=== PATIENT | female | born 1930 | race Caucasian/White ===

== ENCOUNTER 2017-01-08 16:18 | Inpatient (IN) | payer MEDICARE, BC ==
[~2017-01-08] VITALS: Ht 152.4 cm; Wt 59.7 kg
[~2017-01-08 16:18] MED LIST: BENAZEPRIL PO; CALTRATE-600 W600 MG PO; CELEBREX 200MG200 MG PO; CENTRUM SILVER1 TA1 PO; CLARITIN; DEBROX EAR DROPS; DETROL LA PO; DIOVAN80 M1 PO; DITROPAN 5MG TAB5 MG PO; DULCOLAX S10 MG/SUPP RC; FOSAMAX 70MG TA70 MG PO; FOSAMAX PO; LACTOSE INTOLERANCE; LIDODERM PATCH TD; LORATADINE10 MG PO; METAMUCIL1 PDR PO; NORVASC PO; OSCAL W/VIT D250 MG PO; PAXIL 10MG10 MG PO; PREMARIN .3MG0.3 MG PO; PREMARIN0.625 MG PO; REMERON 15M15 MG/TAB PO; SENOKOT8.6 MG PO; TYLENOL 325MG325 MG PO; ULTRAM50 MG PO
[2017-01-08 17:05] LABS: BASO % 0.6 % (0.0-2.0); EOS # 0.1 (0.0-0.7); EOS % 1.7 % (0-4.0); GRAN # 5.3 (1.4-6.5); GRAN % 74.1 % (42.2-75.2); LYMPH # 1.1 (1.2-3.4); LYMPH % 15.5 % (20.0-51.0); MEAN CELL VOLUME 100 fl (80.0-100.0); MEAN CORPUSCULAR HGB CONC 30 g/dl (33.0-37.0); MEAN PLATELET VOLUME 10.5 fl (7.4-10.4); MONO # 0.6 (0.1-0.6); MONO % 7.8 % (1.7-9.3); PLATELET COUNT 288 K/mm3 (130-400); RED BLOOD COUNT 1.89 M/mm3 (4.10-5.30); REDCELL DISTRIBUTION WIDTH-CV 14.6 % (11.5-14.5); WHITE BLOOD COUNT 7.2 K/mm3 (4.8-10.8)
[2017-01-08 17:09] LABS: HEMATOCRIT 18.8 % (37.0-47.0); HEMOGLOBIN 5.7 g/dl (12.5-16.0); MEAN CORPUSCULAR HEMOGLOBIN 30 pg (27.0-31.0)
[2017-01-08 17:11] LABS: ADJUSTED CALCIUM 8.9 mg/dL (8.4-10.2); ALANINE AMINOTRANSFERASE 16 U/L (9-52); ALBUMIN 3.7 gm/dL (3.5-5.0); ALKALINE PHOSPHATASE 63 U/L (50-136); ANION GAP 14 mmol/L (7-16); BILIRUBIN,TOTAL 0.5 mg/dL (0.0-1.0); C-REACTIVE PROTEIN 0.7 mg/dL (0.0-0.9); CALCIUM 8.7 mg/dL (8.4-10.2); CARBON DIOXIDE 19 mmol/L (22-30); CHLORIDE 110 mmol/L (98-107); CREATINE KINASE 65 U/L (30-135); CREATININE, serum 3.15 mg/dL (0.52-1.25); GLUCOSE 88 mg/dL (74-106); LIPASE 231 U/L (23-300); POTASSIUM 4.8 mmol/L (3.4-5.0); SODIUM 142 mmol/L (137-145); TOTAL PROTEIN 6.6 gm/dL (6.4-8.2)
[2017-01-08 17:19] LABS: ACETAMINOPHEN < 10 ug/mL (10-30); SALICYLATE < 1.0 mg/dL
[2017-01-08 17:20] LABS: B-TYPE NATRIURETIC PEPTIDE 910 pg/mL (0-450); BLOOD UREA NITROGEN 96 mg/dL (7-17)
[2017-01-08 17:22] LABS: TROPONIN-I < 0.012 ng/mL (0.000-0.034)
[2017-01-08 17:38] LABS: ERYTHROCYTE SEDIMENTATION RATE 48 mm/hr (0-30)
[2017-01-08 18:13] LABS: AMPHETAMINE URINE NEGATIVE; BARBITURATES URINE NEGATIVE; BENZODIAZEPINES URINE NEGATIVE; BUPRENORPHINE URINE NEGATIVE; METHADONE URINE NEGATIVE; OPIATES URINE NEGATIVE; OXYCODONE URINE NEGATIVE; PHENCYCLIDINE URINE NEGATIVE; PROPOXYPHENE URINE NEGATIVE; THC CANNABINOIDS URINE NEGATIVE
[2017-01-08] MEDS ORDERED: CLARITIN 1010 MG/TAB PO (18:24)
[2017-01-08] MEDS ORDERED: BYSTOLIC5 MG PO (18:24)
[2017-01-08] MEDS ORDERED: [UNRECOGNIZED DRUG - OTHER] OS (18:25)
[2017-01-08] MEDS ORDERED: MURO 128 5% OPH15 ML OS (18:25)
[2017-01-08] MEDS ORDERED: RT ADVAIR 128 DISKUS IH (18:26)
[2017-01-08] MEDS ORDERED: TYLENOL 325MG325 MG PO (18:26)
[2017-01-08] MEDS ORDERED: IMODIUM 2MG CAPS2 MG PO (18:26)
[2017-01-08] MEDS ORDERED: PAXIL 10MG10 MG PO (18:27)
[2017-01-08] MEDS ORDERED: VELTASSA8.4 GM PO (18:27)
[2017-01-08] MEDS ORDERED: PROCRIT 4,04 MU/VIAL IM (18:27)
[2017-01-08] MEDS ORDERED: SINGULAIR 110 MG/TAB PO (18:27)
[2017-01-08 18:28] LABS: PH 5 (5-8); SQUAMOUS EPITHELIAL 0-2 /hpf; URINE APPEARANCE Hazy; URINE BACTERIA Rare /hpf; URINE BILIRUBIN Negative (NEGATIVE); URINE BLOOD Negative (NEGATIVE); URINE COLOR Yellow; URINE GLUCOSE Negative (NEGATIVE); URINE KETONE Negative (NEGATIVE); URINE RBC None Seen /hpf; URINE UROBILINOGEN Negative (NEGATIVE); URINE WBC 0-2 /hpf
[2017-01-08] MEDS ORDERED: DITROPAN 5MG TAB5 MG PO (18:28)
[2017-01-08 21:29] VITALS: BP 156/51; PULSE 90; TEMP 98.2
[2017-01-08 23:55] VITALS: BP 149/57; PULSE 99; TEMP 99
[2017-01-09] VITALS (16 sets, daily range): BP systolic 117–182; BP diastolic 44–76; PULSE 84–108; TEMP 97.3–99.2
[2017-01-09 07:33] LABS: BASO % 0.4 % (0.0-2.0); EOS # 0.1 (0.0-0.7); EOS % 1.5 % (0-4.0); GRAN # 6.2 (1.4-6.5); GRAN % 66.5 % (42.2-75.2); LYMPH % 20.9 % (20.0-51.0); MEAN CORPUSCULAR HGB CONC 32 g/dl (33.0-37.0); MEAN PLATELET VOLUME 10.4 fl (7.4-10.4); MONO % 10.3 % (1.7-9.3); PLATELET COUNT 235 K/mm3 (130-400); RED BLOOD COUNT 2.59 M/mm3 (4.10-5.30); REDCELL DISTRIBUTION WIDTH-CV 16.2 % (11.5-14.5); WHITE BLOOD COUNT 9.4 K/mm3 (4.8-10.8)
[2017-01-09 07:37] LABS: CALCIUM 8.3 mg/dL (8.4-10.2); CREATININE, serum 2.75 mg/dL (0.52-1.25); POTASSIUM 4.2 mmol/L (3.4-5.0)
[2017-01-09 07:40] LABS: HEMATOCRIT 24.3 % (37.0-47.0); HEMOGLOBIN 7.8 g/dl (12.5-16.0); MEAN CELL VOLUME 94 fl (80.0-100.0); MEAN CORPUSCULAR HEMOGLOBIN 30 pg (27.0-31.0)
[2017-01-09 17:10] LABS: HEMATOCRIT 23.9 % (37.0-47.0); HEMOGLOBIN 7.8 g/dl (12.5-16.0)
[2017-01-10 03:24] VITALS: BP 142/51; PULSE 89; TEMP 98.6
[2017-01-10 07:45] LABS: HEMATOCRIT 22.6 % (37.0-47.0); HEMOGLOBIN 7.4 g/dl (12.5-16.0)
[2017-01-10 07:46] LABS: CALCIUM 8.5 mg/dL (8.4-10.2); CREATININE, serum 2.68 mg/dL (0.52-1.25)
[2017-01-10 08:15] VITALS: BP 122/47; PULSE 99; TEMP 98.1
[2017-01-10 12:01] VITALS: BP 118/47; PULSE 113; TEMP 98.3
[2017-01-10 16:42] VITALS: BP 130/54; PULSE 92; TEMP 98.3
[2017-01-10 16:57] LABS: HEMOGLOBIN 7.5 g/dl (12.5-16.0)
[2017-01-10 16:58] LABS: HEMATOCRIT 23.3 % (37.0-47.0)
[2017-01-10 19:41] VITALS: BP 142/56; PULSE 117; TEMP 97.5
[2017-01-10 23:09] VITALS: BP 133/48; PULSE 105; TEMP 98.7
[2017-01-11 02:23] VITALS: BP 148/51; PULSE 101; TEMP 98.6
[2017-01-11 07:28] LABS: BASO # 0.1 (0.0-0.2); BASO % 0.7 % (0.0-2.0); EOS # 0.1 (0.0-0.7); EOS % 1.6 % (0-4.0); GRAN # 5.5 (1.4-6.5); GRAN % 67.6 % (42.2-75.2); LYMPH # 1.6 (1.2-3.4); LYMPH % 19.5 % (20.0-51.0); MEAN CELL VOLUME 94 fl (80.0-100.0); MEAN CORPUSCULAR HGB CONC 32 g/dl (33.0-37.0); MEAN PLATELET VOLUME 10.3 fl (7.4-10.4); MONO # 0.8 (0.1-0.6); MONO % 10.2 % (1.7-9.3); PLATELET COUNT 251 K/mm3 (130-400); RED BLOOD COUNT 2.46 M/mm3 (4.10-5.30); REDCELL DISTRIBUTION WIDTH-CV 16.4 % (11.5-14.5); WHITE BLOOD COUNT 8.2 K/mm3 (4.8-10.8)
[2017-01-11 07:32] LABS: HEMOGLOBIN 7.4 g/dl (12.5-16.0); MEAN CORPUSCULAR HEMOGLOBIN 30 pg (27.0-31.0)
[2017-01-11 07:36] LABS: CALCIUM 8.6 mg/dL (8.4-10.2); CREATININE, serum 2.91 mg/dL (0.52-1.25)
[2017-01-11 07:46] VITALS: BP 134/54; PULSE 95; TEMP 98.1
[2017-01-11 12:20] VITALS: BP 132/51; PULSE 94; TEMP 98.1
[2017-01-11 15:35] VITALS: BP 119/51; PULSE 96; TEMP 98.3
[2017-01-11 20:56] VITALS: BP 134/43; PULSE 98; TEMP 98.1
[2017-01-11 22:24] VITALS: BP 156/53; PULSE 98; TEMP 98.3
[2017-01-12 04:12] VITALS: BP 120/47; PULSE 88; TEMP 98.7
[2017-01-12] MEDS ORDERED: FERROUS SU325 MG/TAB PO (08:27)
[2017-01-12] MEDS ORDERED: PROTONIX 40MG T40 MG PO (08:28)
[2017-01-12] MEDS ORDERED: SODIUM BICARBO650 MG PO (08:28)
[2017-01-12 08:30] VITALS: BP 121/36; PULSE 61; TEMP 98
[2017-01-12 08:30] LABS: HEMATOCRIT 23.4 % (37.0-47.0); HEMOGLOBIN 7.5 g/dl (12.5-16.0)
[2017-01-12 11:06] VITALS: BP 118/44; PULSE 96; TEMP 97.8
[2017-01-12 14:53] VITALS: BP 118/44; PULSE 96; TEMP 97.8
== END 2017-01-12 15:39 | DRG 378 ==
LOC: COL.ER 16:18 → MEDICAL 18:12
PROVIDERS: Emergency Medicine; Internal Medicine; Internal Medicine Gastroenterology; Nurse Practitioner Family
PROC: 0DJ08ZZ Inspection of Upper Intestinal Tract, Via Natural or Artificial Opening Endoscopic (ICD-10-PCS; principal; 2017-01-09 12:00)
PROC: 0D5L8ZZ Destruction of Transverse Colon, Via Natural or Artificial Opening Endoscopic (ICD-10-PCS; 2017-01-09 12:00)
DX: K25.4 Chronic or unspecified gastric ulcer with hemorrhage (principal); N18.4 Chronic kidney disease, stage 4 (severe); E87.2 Acidosis; D62 Acute posthemorrhagic anemia; I12.9 Hypertensive chronic kidney disease with stage 1 through stage 4 chronic kidney disease, or unspecified chronic kidney disease; F41.9 Anxiety disorder, unspecified; K64.0 First degree hemorrhoids; K57.30 Diverticulosis of large intestine without perforation or abscess without bleeding; Z85.3 Personal history of malignant neoplasm of breast
CPT/HCPCS: 99222-AI; 99232-AI; 99239; C9113; J2704; J7030; P9016

== ENCOUNTER → 2017-01-18 | Outpatient (CLI) | payer OTHER, MEDICARE, BC ==
[~2017-01-18] MED LIST changes: +BYSTOLIC5 MG PO; +CLARITIN 1010 MG/TAB PO; +FERROUS SU325 MG/TAB PO; +IMODIUM 2MG CAPS2 MG PO; +MURO 128 5% OPH15 ML OS; +PROCRIT 4,04 MU/VIAL IM; +PROTONIX 40MG T40 MG PO; +RT ADVAIR 128 DISKUS IH; +SINGULAIR 110 MG/TAB PO; +SODIUM BICARBO650 MG PO; +VELTASSA8.4 GM PO; +[UNRECOGNIZED DRUG - OTHER] OS
[2017-01-18 16:58] LABS: CALCIUM 8.1 mg/dL (8.4-10.2); CREATININE, serum 3.73 mg/dL (0.52-1.25); POTASSIUM 4.9 mmol/L (3.4-5.0)
[2017-01-18 17:01] LABS: BASO % 0.7 % (0.0-2.0); EOS # 0.1 (0.0-0.7); EOS % 1.7 % (0-4.0); GRAN % 66.2 % (42.2-75.2); LYMPH # 1.2 (1.2-3.4); LYMPH % 19.7 % (20.0-51.0); MEAN CELL VOLUME 98 fl (80.0-100.0); MEAN CORPUSCULAR HGB CONC 31 g/dl (33.0-37.0); MEAN PLATELET VOLUME 10.6 fl (7.4-10.4); MONO # 0.7 (0.1-0.6); MONO % 11.4 % (1.7-9.3); PLATELET COUNT 275 K/mm3 (130-400); RED BLOOD COUNT 2.38 M/mm3 (4.10-5.30); REDCELL DISTRIBUTION WIDTH-CV 16.7 % (11.5-14.5); WHITE BLOOD COUNT 6.1 K/mm3 (4.8-10.8)
[2017-01-18 17:06] LABS: HEMATOCRIT 23.4 % (37.0-47.0); HEMOGLOBIN 7.2 g/dl (12.5-16.0); MEAN CORPUSCULAR HEMOGLOBIN 30 pg (27.0-31.0)
== END ==
LOC: COL.LAB 16:00
PROVIDERS: Internal Medicine
DX: N18.4 Chronic kidney disease, stage 4 (severe) (principal); K92.2 Gastrointestinal hemorrhage, unspecified

== ENCOUNTER 2017-03-20 22:04 | Emergency (ER) | payer MEDICARE, BC ==
[~2017-03-20] VITALS: Ht 129.5 cm; Wt 61.8 kg
[2017-03-20 22:09] VITALS: BP 163/67; TEMP 99.4
[2017-03-20 23:53] LABS: BASO % 0.5 % (0.0-2.0); EOS # 0.1 (0.0-0.7); EOS % 1.4 % (0-4.0); GRAN # 5.4 (1.4-6.5); GRAN % 69.8 % (42.2-75.2); HEMATOCRIT 29.9 % (37.0-47.0); HEMOGLOBIN 9.1 g/dl (12.5-16.0); LYMPH # 1.4 (1.2-3.4); LYMPH % 17.8 % (20.0-51.0); MEAN CELL VOLUME 96 fl (80.0-100.0); MEAN CORPUSCULAR HEMOGLOBIN 29 pg (27.0-31.0); MEAN CORPUSCULAR HGB CONC 30 g/dl (33.0-37.0); MEAN PLATELET VOLUME 10.4 fl (7.4-10.4); MONO # 0.8 (0.1-0.6); MONO % 10.4 % (1.7-9.3); PLATELET COUNT 244 K/mm3 (130-400); RED BLOOD COUNT 3.12 M/mm3 (4.10-5.30); REDCELL DISTRIBUTION WIDTH-CV 14.8 % (11.5-14.5); WHITE BLOOD COUNT 7.8 K/mm3 (4.8-10.8)
[2017-03-21 00:08] LABS: CALCIUM 8.7 mg/dL (8.4-10.2); POTASSIUM 4.5 mmol/L (3.4-5.0)
[2017-03-21 00:50] VITALS: PULSE 80
== END 2017-03-21 00:50 | disposition home or self-care (01) ==
LOC: COL.ER 22:04
PROVIDERS: Emergency Medicine
DX: R19.7 Diarrhea, unspecified (principal); I12.9 Hypertensive chronic kidney disease with stage 1 through stage 4 chronic kidney disease, or unspecified chronic kidney disease; N18.4 Chronic kidney disease, stage 4 (severe); D63.1 Anemia in chronic kidney disease; Z87.11 Personal history of peptic ulcer disease; Z85.3 Personal history of malignant neoplasm of breast

== ENCOUNTER → 2017-04-30 | Outpatient (CLI) | payer MEDICARE, BC ==
[2017-04-30 18:35] LABS: BASO % 0.7 % (0.0-2.0); EOS # 0.1 (0.0-0.7); EOS % 2.3 % (0-4.0); GRAN # 3.8 (1.4-6.5); GRAN % 65.2 % (42.2-75.2); LYMPH # 1.3 (1.2-3.4); LYMPH % 21.7 % (20.0-51.0); MEAN CELL VOLUME 96 fl (80.0-100.0); MEAN CORPUSCULAR HGB CONC 30 g/dl (33.0-37.0); MEAN PLATELET VOLUME 11.1 fl (7.4-10.4); MONO # 0.6 (0.1-0.6); MONO % 9.9 % (1.7-9.3); PLATELET COUNT 237 K/mm3 (130-400); RED BLOOD COUNT 3.46 M/mm3 (4.10-5.30); WHITE BLOOD COUNT 5.8 K/mm3 (4.8-10.8)
[2017-04-30 18:45] LABS: HEMATOCRIT 33.2 % (37.0-47.0); HEMOGLOBIN 10.1 g/dl (12.5-16.0); MEAN CORPUSCULAR HEMOGLOBIN 29 pg (27.0-31.0)
[2017-04-30 19:29] LABS: ADJUSTED CALCIUM 8.7 mg/dL (8.4-10.2); BILIRUBIN,TOTAL 0.5 mg/dL (0.0-1.0); CALCIUM 8.7 mg/dL (8.4-10.2); CREATININE, serum 3.31 mg/dL (0.52-1.25); POTASSIUM 4.8 mmol/L (3.4-5.0); TOTAL PROTEIN 6.6 gm/dL (6.4-8.2)
== END ==
LOC: ZCOL.LAB 18:20
PROVIDERS: Internal Medicine
DX: I67.9 Cerebrovascular disease, unspecified (principal); R41.0 Disorientation, unspecified

== ENCOUNTER 2017-06-26 12:50 | Outpatient (CLI) | payer MEDICARE, BC ==
[~2017-06-26] VITALS: Ht 129.5 cm; Wt 63.0 kg
== END 2017-06-26 14:40 | disposition home or self-care (01) ==
LOC: EUO 12:50
DX: N18.5 Chronic kidney disease, stage 5 (principal); D63.1 Anemia in chronic kidney disease; Z79.899 Other long term (current) drug therapy
CPT/HCPCS: J0881

== ENCOUNTER → 2019-05-13 | Outpatient (CLI) | payer MEDICARE, BC | LOC: ZCOL.LAB 18:49 | DX: A04.72 Enterocolitis due to Clostridium difficile, not specified as recurrent (principal) ==